=== PATIENT | female | born 1970 | race African-American/Black ===

== ENCOUNTER 2019-11-15 02:18 | Inpatient (IN) | payer MEDICAID, OTHER ==
[~2019-11-15] VITALS: Ht 167.6 cm; Wt 135.2 kg
[2019-11-15] VITALS (30 sets, daily range): BP systolic 110–206; BP diastolic 50–157
[~2019-11-15 02:18] MED LIST: ALBUTEROL; LOTENSIN; PROAIR; UNK HTN MED
[2019-11-15] MEDS ORDERED: ETOMIDATE 2MG/ML 10ML VIAL IV ONE ×2 (02:20→02:30)
[2019-11-15] MEDS ORDERED: SUCCINYLCHOLINE CHLORIDE 200MG/10ML IV ONE ×2 (02:20→02:30)
[2019-11-15] MEDS ORDERED: MORPHINE SULFATE 4 MG/ML CPJ (NOT FOR IM USE) IV STA (02:24)
[2019-11-15] MEDS ORDERED: METHYLPREDNISOLONE SOD SUCC 125 MG/2 ML VIAL IV STA (02:24)
[2019-11-15] MEDS ORDERED: IPRATROPIUM BROMIDE (0.02%) 0.5MG/2.5ML NEB HHN STA (02:24)
[2019-11-15] MEDS ORDERED: SODIUM CHLORIDE 0.9% 1,000 ML IV ONE (02:24)
[2019-11-15] MEDS ORDERED: ONDANSETRON HCL 4MG/2ML INJ IV STA (02:24)
[2019-11-15] MEDS ORDERED: PROPOFOL 10MG/ML 100ML 100 ML IV ONE ×2 (02:30→13:26)
[2019-11-15] MEDS ORDERED: MIDAZOLAM HCL 50 MG in DEXTROSE 5% WATER 40 ML IV ONE (02:30)
[2019-11-15] MEDS ORDERED: FENTANYL CITRATE/PF 500 MCG in SODIUM CHLORIDE 0.9% 40 ML IV PRN ×2 (02:30→10:30)
[2019-11-15] MEDS ORDERED: MAGNESIUM 2 G PREMIX 50 ML IV ONE (02:30)
[2019-11-15] MEDS ORDERED: MIDAZOLAM HCL 2 MG/2 ML VIAL IV ONE (02:45)
[2019-11-15 02:55] LABS: BASOPHILS % 1.1 % (0.0-2.0); HEMATOCRIT. 42.5 % (36.0-48.0); HEMOGLOBIN. 13.8 g/dL (12.0-16.0); LYMPHOCYTES % 50.9 % (20.0-50.0); MEAN CORPUSCULAR HEMOGLOBIN 29.2 pg (28.0-32.0); MEAN CORPUSCULAR VOLUME 90.3 fL (81.0-99.0); MEAN PLATELET VOLUME 9.2 fl (7.4-10.4); MONOCYTES % 7.1 % (2.0-8.0); NEUTROPHILS % 38.9 % (40.0-76.0); PLATELET 291 x1000/uL (130-400); RED BLOOD CELL COUNT 4.71 mill/uL (4.2-5.4); RED CELL DISTRIBUTION WIDTH 17.8 % (11.6-14.6)
[2019-11-15 03:02] LABS: CHLORIDE 109 mEq/L (98-107)
[2019-11-15 03:07] LABS: BG CARBOXYHEMOGLOBIN 2.9 % (0.5-1.5); BG DEOXYHEMOGLOBIN 0.9 % (0.0-5.0); BG FRACTION INSPIRED OXYGEN 60; BG HCO3 ACT 24.7 mmol/L (22.0-26.0); BG METHEMOGLOBIN 0.2 % (0.0-1.5); BG OXYGEN SATURATION 99.1 % (92.0-98.5); BG PCO2 61.7 mmHg (35.0-45.0); BG PO2 207.5 mmHg (75.0-100.0); BG SAMPLE SITE RIGHT RADIAL; BG TIDAL VOLUME(mL) 500 mL; BG TOTAL HEMOGLOBIN 13.6 g/dL (12.0-18.0); BG VENT MODE VENT - A/C; BG VENT RATE 16 set
[2019-11-15] MEDS: FENTANYL CITRATE/PF 500 MCG in SODIUM CHLORIDE 0.9% 40 ML IV PRN ×3 (03:14→17:00)
[2019-11-15] MEDS: ALBUTEROL (0.083%) 2.5MG/3ML NEB HHN SCH ×3 (03:27→04:48)
[2019-11-15] MEDS ORDERED: IPRATROPIUM BROMIDE (0.02%) 0.5MG/2.5ML NEB ONE (03:28)
[2019-11-15 03:31] LABS: ETHANOL BLOOD < 10 mg/dL
[2019-11-15 03:52] LABS: CLARITY URINE CLOUDY (CLEAR); COLOR URINE YELLOW (YELLOW); KETONES URINE NEGATIVE (NEGATIVE); LEUKOCYTE ESTERASE URINE NEGATIVE (NEGATIVE); NITRITE URINE NEGATIVE (NEGATIVE); OCCULT BLOOD URINE 1+ (NEGATIVE); PROTEIN URINE 3+ (NEGATIVE); SPECIFIC GRAVITY URINE 1.023 (1.005-1.030)
[2019-11-15 04:19] LABS: *AMPHETAMINES SCREEN URINE NEGATIVE (NEGATIVE); *BARBITURATES SCREEN URINE NEGATIVE (NEGATIVE)
[2019-11-15 04:20] LABS: *COCAINE SCREEN URINE NEGATIVE (NEGATIVE); CANNABINOID URINE SCREEN NEGATIVE (NEGATIVE); METHADONE URINE SCREEN NEGATIVE (NEGATIVE); OPIATES URINE SCREEN NEGATIVE (NEGATIVE); PHENCYCLIDINE URINE SCREEN NEGATIVE (NEGATIVE)
[2019-11-15 04:38] LABS: *BENZODIAZEPINES SCREEN URINE PRESUMTIVE POSITIVE (NEGATIVE)
[2019-11-15] MEDS: PROPOFOL 10MG/ML 100ML 100 ML IV PRN ×3 (05:01→22:30)
[2019-11-15] MEDS: METHYLPREDNISOLONE SOD SUCC 40 MG/ML VIAL IV SCH ×3 (08:00→21:22)
[2019-11-15] MEDS: SODIUM CHLORIDE 0.9% 1,000 ML IV SCH ×2 (08:00→18:48)
[2019-11-15] MEDS ORDERED: ACETAMINOPHEN 325MG TABLET PO PRN (08:00)
[2019-11-15] MEDS ORDERED: ONDANSETRON HCL 4MG/2ML INJ IV PRN (08:00)
[2019-11-15] MEDS ORDERED: LEVOFLOXACIN 750MG PREMIX 150 ML IV SCH (08:15)
[2019-11-15] MEDS ORDERED: PANTOPRAZOLE SODIUM 40 MG/VIAL IV SCH (09:00)
[2019-11-15 09:35] LABS: BG BASE EXCESS -1.2 mmol/L (-2.0-2.0); BG CARBOXYHEMOGLOBIN 1.1 % (0.5-1.5); BG FRACTION INSPIRED OXYGEN 40; BG HCO3 ACT 24.6 mmol/L (22.0-26.0); BG METHEMOGLOBIN 0.1 % (0.0-1.5); BG OXYHEMOGLOBIN 94.8 % (94.0-97.0); BG PCO2 45.4 mmHg (35.0-45.0); BG PH 7.352 (7.350-7.450); BG PO2 80.4 mmHg (75.0-100.0); BG SAMPLE SITE RIGHT RADIAL; BG TIDAL VOLUME(mL) 500 mL; BG TOTAL HEMOGLOBIN 13.6 g/dL (12.0-18.0); BG VENT MODE VENT - A/C; BG VENT RATE 16 set
[2019-11-15] MEDS ORDERED: MIDAZOLAM HCL 50 MG in DEXTROSE 5% WATER 40 ML IV PRN (10:30)
[2019-11-15] MEDS: LORATADINE 10MG TABLET PO SCH (10:30)
[2019-11-15] MEDS: NICOTINE 14MG PATCH TD SCH (10:45)
[2019-11-15] MEDS: IPRATROPIUM/ALBUTEROL 0.5-3(2.5)MG/3ML NEB HHN SCH ×3 (12:00→20:14)
[2019-11-15 12:10] LABS: CHLORIDE 107 mEq/L (98-107)
[2019-11-15 12:12] LABS: HEMATOCRIT 39.9 % (36.0-48.0); HEMOGLOBIN 12.9 g/dL (12.0-16.0); MEAN CORPUSCULAR HEMOGLOBIN 28.9 pg (28.0-32.0); MEAN CORPUSCULAR VOLUME 89.2 fL (81.0-99.0); PLATELET 299 x1000/uL (130-400); RED BLOOD CELL COUNT 4.47 mill/uL (4.2-5.4); RED CELL DISTRIBUTION WIDTH 17.3 % (11.6-14.6)
[2019-11-15 12:18] LABS: CREATINE KINASE 274 IU/L (26-192)
[2019-11-15] MEDS: MIDAZOLAM HCL 50 MG in DEXTROSE 5% WATER 40 ML IV PRN (16:00)
[2019-11-15] MEDS ORDERED: IPRATROPIUM/ALBUTEROL 0.5-3(2.5)MG/3ML NEB HHN PRN (16:01)
[2019-11-15] MEDS: MONTELUKAST SODIUM 10MG TABLET PO SCH (18:48)
[2019-11-15] MEDS: ENOXAPARIN 30MG/0.3ML SYR SUBCUT SCH (21:22)
[2019-11-15] MEDS: FAMOTIDINE 20MG/2ML VIAL IV SCH (21:22)
[2019-11-16] VITALS (88 sets, daily range): BP systolic 93–205; BP diastolic 45–121
[2019-11-16] MEDS: FENTANYL CITRATE/PF 500 MCG in SODIUM CHLORIDE 0.9% 40 ML IV PRN (02:00)
[2019-11-16] MEDS: IPRATROPIUM/ALBUTEROL 0.5-3(2.5)MG/3ML NEB HHN SCH ×5 (02:12→20:05)
[2019-11-16] MEDS: MIDAZOLAM HCL 50 MG in DEXTROSE 5% WATER 40 ML IV PRN (04:02)
[2019-11-16] MEDS ORDERED: MIDAZOLAM HCL 100 MG in DEXT 5% WATER 80 ML IV PRN (04:07)
[2019-11-16] MEDS ORDERED: PROPOFOL 10MG/ML 100ML 100 ML IV PRN (05:00)
[2019-11-16] MEDS: SODIUM CHLORIDE 0.9% 1,000 ML IV SCH ×2 (05:04→17:30)
[2019-11-16] MEDS: FENTANYL CITRATE/PF 1,000 MCG in SODIUM CHLORIDE 0.9% 80 ML IV PRN ×2 (05:07→10:21)
[2019-11-16] MEDS: METHYLPREDNISOLONE SOD SUCC 40 MG/ML VIAL IV SCH ×3 (05:32→21:20)
[2019-11-16 06:04] LABS: HEMATOCRIT. 40.8 % (36.0-48.0); MEAN CORPUSCULAR HEMOGLOBIN 28.6 pg (28.0-32.0); MEAN CORPUSCULAR VOLUME 89.8 fL (81.0-99.0); MEAN PLATELET VOLUME 9.5 fl (7.4-10.4); PLATELET 322 x1000/uL (130-400); RED BLOOD CELL COUNT 4.54 mill/uL (4.2-5.4); RED CELL DISTRIBUTION WIDTH 17.8 % (11.6-14.6)
[2019-11-16 06:10] LABS: CHLORIDE 111 mEq/L (98-107)
[2019-11-16 07:23] LABS: PLATELET ESTIMATE NORMAL
[2019-11-16] MEDS ORDERED: LEVOFLOXACIN 750MG PREMIX 150 ML IV SCH (08:00)
[2019-11-16] MEDS: LORATADINE 10MG TABLET PO SCH (08:42)
[2019-11-16] MEDS: NICOTINE 14MG PATCH TD SCH (08:42)
[2019-11-16] MEDS: ENOXAPARIN 30MG/0.3ML SYR SUBCUT SCH (08:44)
[2019-11-16] MEDS: FAMOTIDINE 20MG/2ML VIAL IV SCH ×2 (08:47→21:20)
[2019-11-16 09:41] LABS: BG BASE EXCESS -2.2 mmol/L (-2.0-2.0); BG CARBOXYHEMOGLOBIN 0.4 % (0.5-1.5); BG DEOXYHEMOGLOBIN 4.2 % (0.0-5.0); BG FRACTION INSPIRED OXYGEN 40; BG HCO3 ACT 21.7 mmol/L (22.0-26.0); BG METHEMOGLOBIN 0.1 % (0.0-1.5); BG OXYGEN SATURATION 95.8 % (92.0-98.5); BG OXYHEMOGLOBIN 95.3 % (94.0-97.0); BG PCO2 34.5 mmHg (35.0-45.0); BG PH 7.417 (7.350-7.450); BG PO2 82.4 mmHg (75.0-100.0); BG SAMPLE SITE RIGHT RADIAL; BG TIDAL VOLUME(mL) 500 mL; BG TOTAL HEMOGLOBIN 12.9 g/dL (12.0-18.0); BG VENT MODE VENT - A/C; BG VENT RATE 16 set
[2019-11-16] MEDS ORDERED: LORAZEPAM 2MG/ML CPJ IV SCH (11:00)
[2019-11-16 11:43] LABS: BG BASE EXCESS -2.3 mmol/L (-2.0-2.0); BG CARBOXYHEMOGLOBIN 0.5 % (0.5-1.5); BG DEOXYHEMOGLOBIN 3.4 % (0.0-5.0); BG FRACTION INSPIRED OXYGEN 40; BG HCO3 ACT 22.9 mmol/L (22.0-26.0); BG METHEMOGLOBIN 0.3 % (0.0-1.5); BG OXYGEN SATURATION 96.6 % (92.0-98.5); BG OXYHEMOGLOBIN 95.8 % (94.0-97.0); BG PCO2 41.2 mmHg (35.0-45.0); BG PH 7.363 (7.350-7.450); BG PO2 90.5 mmHg (75.0-100.0); BG PRESSURE SUPPORT 8; BG SAMPLE SITE RIGHT RADIAL; BG TOTAL HEMOGLOBIN 14.2 g/dL (12.0-18.0); BG VENT MODE VENT - CPAP
[2019-11-16] MEDS: LOSARTAN POTASSIUM 50 MG TABLET PO SCH (14:43)
[2019-11-16] MEDS: MONTELUKAST SODIUM 10MG TABLET PO SCH (17:30)
[2019-11-16] MEDS: CLONIDINE 0.1MG TABLET PO PRN (18:05)
[2019-11-16] MEDS: AMLODIPINE 5MG TABLET PO SCH (21:21)
[2019-11-16] MEDS: ENOXAPARIN 40MG/0.4ML SYR SUBCUT SCH (21:22)
[2019-11-17] VITALS (15 sets, daily range): BP systolic 138–202; BP diastolic 74–114
[2019-11-17] MEDS: IPRATROPIUM/ALBUTEROL 0.5-3(2.5)MG/3ML NEB HHN SCH ×3 (00:52→08:39)
[2019-11-17] MEDS: CLONIDINE 0.1MG TABLET PO PRN (03:31)
[2019-11-17] MEDS: SODIUM CHLORIDE 0.9% 1,000 ML IV SCH (04:22)
[2019-11-17 05:59] LABS: HEMATOCRIT. 40.8 % (36.0-48.0); MEAN CORPUSCULAR HEMOGLOBIN 28.8 pg (28.0-32.0); MEAN CORPUSCULAR VOLUME 90.4 fL (81.0-99.0); MEAN PLATELET VOLUME 9.3 fl (7.4-10.4); PLATELET 309 x1000/uL (130-400); RED BLOOD CELL COUNT 4.51 mill/uL (4.2-5.4); RED CELL DISTRIBUTION WIDTH 18.2 % (11.6-14.6)
[2019-11-17] MEDS: METHYLPREDNISOLONE SOD SUCC 40 MG/ML VIAL IV SCH (06:19)
[2019-11-17 06:30] LABS: CHLORIDE 110 mEq/L (98-107)
[2019-11-17] MEDS ORDERED: LEVOFLOXACIN 750MG PREMIX 150 ML IV SCH (08:00)
[2019-11-17] MEDS: LORATADINE 10MG TABLET PO SCH (08:37)
[2019-11-17] MEDS: LOSARTAN POTASSIUM 50 MG TABLET PO SCH (08:37)
[2019-11-17] MEDS: ENOXAPARIN 40MG/0.4ML SYR SUBCUT SCH (08:38)
[2019-11-17] MEDS: FAMOTIDINE 20MG/2ML VIAL IV SCH (08:38)
[2019-11-17] MEDS: AMLODIPINE 5MG TABLET PO SCH (08:38)
[2019-11-17] MEDS: NICOTINE 14MG PATCH TD SCH (08:38)
[2019-11-17] MEDS ORDERED: LEVO750T21 MT (09:50)
[2019-11-17] MEDS ORDERED: AMLO5TAB88 MT (09:50)
[2019-11-17] MEDS ORDERED: P20 MT (09:50)
[2019-11-17] MEDS ORDERED: IPRA3AMP9 NEB (09:50)
[2019-11-17] MEDS ORDERED: LOSA50TA41 MT (09:50)
[2019-11-17] MEDS ORDERED: FLUT1DIS3 INH (09:50)
[2019-11-17] MEDS ORDERED: HYDR-4135 MT (09:50)
[2019-11-17] MEDS ORDERED: BENZ-16 MT (09:50)
[2019-11-17] MEDS ORDERED: ALBU18HF2 IH (09:50)
[2019-11-17] MEDS ORDERED: HYDRALAZINE HCL 50MG TABLET PO SCH (10:00)
[2019-11-17] MEDS ORDERED: LOSARTAN POTASSIUM 50 MG TABLET PO SCH (21:00)
[2019-11-18 04:23] LABS: PLATELET ESTIMATE NORMAL
== END 2019-11-17 11:15 | disposition home or self-care (01) | DRG 133 ==
LOC: ER 02:18 → MICUNO 05:45 → EDBEDREQ 05:47 → EDBEDREQTM 05:47 → ENRESERV 15:15
PROVIDERS: ADMIT Internal Medicine; ATTEND Internal Medicine
PROC: 5A1945Z Respiratory Ventilation, 24-96 Consecutive Hours (ICD-10-PCS; principal; 2019-11-15)
PROC: 0BH17EZ Insertion of Endotracheal Airway into Trachea, Via Natural or Artificial Opening (ICD-10-PCS; 2019-11-15)
DX: J96.02 Acute respiratory failure with hypercapnia (principal); G93.41 Metabolic encephalopathy; E87.8 Other disorders of electrolyte and fluid balance, not elsewhere classified; E87.2 Acidosis; R73.9 Hyperglycemia, unspecified; J45.901 Unspecified asthma with (acute) exacerbation; E66.9 Obesity, unspecified; I10 Essential (primary) hypertension; F17.210 Nicotine dependence, cigarettes, uncomplicated; F41.0 Panic disorder [episodic paroxysmal anxiety]; Z80.1 Family history of malignant neoplasm of trachea, bronchus and lung; Z80.3 Family history of malignant neoplasm of breast; Z88.0 Allergy status to penicillin; Z88.8 Allergy status to other drugs, medicaments and biological substances; Z88.2 Allergy status to sulfonamides; Z68.42 Body mass index [BMI] 45.0-49.9, adult; Z71.6 Tobacco abuse counseling; Z71.3 Dietary counseling and surveillance; Z79.899 Other long term (current) drug therapy; Z98.891 History of uterine scar from previous surgery
CPT/HCPCS: 36415; 36600; 71045; 71275; 80048; 80053; 80305; 80320; 81003; 82375; 82550; 82805; 83036; 83605; 83880; 84145; 84478; 84484; 85025; 85027; 85379; 87804; 93005; 93970; 94002; 94003; 94640; 96365; 96375; 97166; 99291; C9113; J0330; J1650; J1956; J2060; J2250; J2405; J2704; J2920; J2930; J3010; J3475; J3490; J7030; J7050; J7060; J7611; J7620; G0480

== ENCOUNTER 2019-11-26 22:39 | Emergency (ER) | payer MEDICAID ==
[~2019-11-26] VITALS: Ht 165.1 cm; Wt 118.0 kg
[~2019-11-26 22:39] MED LIST changes: +ALBU18HF2 IH; +AMLO5TAB88 MT; +BENZ-16 MT; +FLUT1DIS3 INH; +HYDR-4135 MT; +IPRA3AMP9 NEB; +LEVO750T21 MT; +LOSA50TA41 MT; -LOTENSIN; +P20 MT; -UNK HTN MED
[2019-11-26] MEDS ORDERED: PREDNISONE 20MG TABLET PO STA (23:30)
[2019-11-26] MEDS ORDERED: IPRATROPIUM BROMIDE (0.02%) 0.5MG/2.5ML NEB HHN STA (23:30)
[2019-11-26] MEDS ORDERED: ALPRAZOLAM 0.5 MG TABLET PO ONE (23:30)
[2019-11-26] MEDS ORDERED: ALBUTEROL (0.083%) 2.5MG/3ML NEB HHN STA (23:30)
[2019-11-27 01:24] VITALS: BP 158/72
== END 2019-11-27 02:00 | disposition home or self-care (01) ==
LOC: ER 22:39
DX: J45.901 Unspecified asthma with (acute) exacerbation (principal); I10 Essential (primary) hypertension; Z88.3 Allergy status to other anti-infective agents; Z88.2 Allergy status to sulfonamides; Z88.0 Allergy status to penicillin
CPT/HCPCS: 36415; 71045; 84484; 94644; 99285; J7512; J7610; Z7610

== ENCOUNTER 2020-12-15 00:01 | Emergency (ER) | payer MEDICAID ==
[~2020-12-15] VITALS: Ht 162.6 cm; Wt 114.0 kg
[2020-12-15 00:35] VITALS: BP 213/109
[2020-12-15] MEDS ORDERED: METHYLPREDNISOLONE SOD SUCC 125 MG/2 ML VIAL IV STA (00:55)
[2020-12-15] MEDS ORDERED: IPRATROPIUM BROMIDE (0.02%) 0.5MG/2.5ML NEB HHN STA (00:55)
[2020-12-15] MEDS ORDERED: ALBUTEROL (0.083%) 2.5MG/3ML NEB HHN STA (00:55)
[2020-12-15] MEDS ORDERED: ALBU18HF2 IH (03:46)
[2020-12-15] MEDS ORDERED: P20 MT (03:46)
== END 2020-12-15 04:03 | disposition home or self-care (01) ==
LOC: ER 00:01
DX: J45.901 Unspecified asthma with (acute) exacerbation (principal); I10 Essential (primary) hypertension; Z88.0 Allergy status to penicillin; Z88.2 Allergy status to sulfonamides; Z79.899 Other long term (current) drug therapy
CPT/HCPCS: 71045; 93005; 94640; 96374; 99283; J2930; Z7610

== ENCOUNTER 2022-05-15 09:23 | Emergency (ER) | payer MEDICAID ==
[~2022-05-15] VITALS: Ht 167.6 cm; Wt 150.0 kg
[2022-05-15 09:31] VITALS: BP 140/100
[2022-05-15] MEDS ORDERED: SODIUM CHLORIDE 0.9% 1,000 ML IV ONE ×2 (09:45→10:15)
[2022-05-15] MEDS ORDERED: MORPHINE SULFATE 4 MG/ML CPJ (NOT FOR IM USE) IV STA (10:06)
[2022-05-15] MEDS ORDERED: ONDANSETRON HCL 4MG/2ML INJ IV STA (10:06)
[2022-05-15] MEDS ORDERED: KETOROLAC 30MG/ML VIAL IV STA (10:06)
[2022-05-15 10:58] LABS: BASOPHILS % 0.4 % (0.0-2.0); EOSINOPHILS % 1.9 % (0.0-5.0); HEMATOCRIT. 44.9 % (36.0-48.0); HEMOGLOBIN. 14.6 g/dL (12.0-16.0); MEAN CORPUSCULAR HEMOGLOBIN 28.9 pg (28.0-32.0); MEAN CORPUSCULAR VOLUME 89.3 fL (81.0-99.0); MEAN PLATELET VOLUME 8.4 fl (7.4-10.4); MONOCYTES % 6.8 % (2.0-8.0); NEUTROPHILS % 67.9 % (40.0-76.0); PLATELET 323 x1000/uL (130-400); RED BLOOD CELL COUNT 5.03 mill/uL (4.2-5.4); RED CELL DISTRIBUTION WIDTH 16.7 % (11.6-14.6)
[2022-05-15 11:01] LABS: CHLORIDE 102 mEq/L (98-107)
[2022-05-15 12:30] LABS: CLARITY URINE CLEAR (CLEAR); COLOR URINE DARK YELLOW (YELLOW); SPECIFIC GRAVITY URINE 1.005 (1.005-1.030)
[2022-05-15 12:31] LABS: KETONES URINE TRACE (NEGATIVE); LEUKOCYTE ESTERASE URINE TRACE (NEGATIVE); NITRITE URINE POSITIVE (NEGATIVE); OCCULT BLOOD URINE NEGATIVE (NEGATIVE); PROTEIN URINE NEGATIVE (NEGATIVE); UROBILINOGEN URINE 0.2 E.U./dL (0.2-1.0)
[2022-05-15] MEDS ORDERED: MORPHINE SULFATE 10 MG/ML CPJ IV NR (14:45)
[2022-05-15] MEDS ORDERED: LEVOFLOXACIN 500MG PREMIX 100 ML IV ONE (15:30)
== END 2022-05-15 15:47 | disposition left against medical advice (07) ==
LOC: ER 09:23 → CANBEDREQ 18:21
DX: K80.50 Calculus of bile duct without cholangitis or cholecystitis without obstruction (principal); J44.1 Chronic obstructive pulmonary disease with (acute) exacerbation; I10 Essential (primary) hypertension; E66.9 Obesity, unspecified; Z68.43 Body mass index [BMI] 50.0-59.9, adult; Z88.0 Allergy status to penicillin; Z79.899 Other long term (current) drug therapy
CPT/HCPCS: 36415; 74176; 76700; 76830; 76856; 80053; 81003; 83690; 85025; 87086; 96361; 96374; 96375; 99284; J1885; J2405; J7030